=== PATIENT | male | born 1985 | race Caucasian/White ===

== ENCOUNTER 2017-08-14 02:03 | Emergency (ER) | payer MEDICAID, OTHER ==
[2017-08-14] MEDS ORDERED: HYDROmorphone 1 MG/ML Syringe ONE (02:21)
[2017-08-14] MEDS ORDERED: HYDROmorphone 1 MG/ML Syringe IVPUSH ONE (02:21)
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
[2017-08-14] MEDS ORDERED: Sodium Chloride 0.9% 1,000 ML IV SCH ×2 (02:30→03:45)
[2017-08-14] MEDS ORDERED: Ondansetron 4 MG/2 ML SDV IVPUSH ONE (02:57)
[2017-08-14] MEDS ORDERED: Ondansetron 4 MG/2 ML SDV ONE (03:00)
[2017-08-14] MEDS ORDERED: Insulin Regular, Human 100 Units/ML 10 ML Vial SUBCUT ONE (03:02)
[2017-08-14] MEDS ORDERED: cefTRIAXone 1 GM in Sodium Chloride 0.9% 50 ML IV ONE (04:07)
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
--- NOTE | 2017-08-14 09:18 | CR ---
Ankle Min 3V Lt HISTORY: pain in ankle FINDINGS: There is mild widening of the ankle mortise and slight lateral subluxation suggesting ligam entous injury. There are small calcific densities adjacent medial malleolus. This could represent sma ll avulsion fracture versus radiopaque foreign body such as glass overlying the medial ankle. Recomme nd clinical correlation for point tenderness. Soft tissue swelling is present, greater medially than laterally IMPRESSION: Soft tissue swelling, greater medially than laterally. Mild widening of the ankle mortise and slight lateral subluxation could suggest ligamentous injury. Calcific densities are seen adjacen t to the medial malleolus which could represent accessory ossification centers, small avulsion fractu re fragment, or radiopaque foreign body such as glass fragments. Recommend clinical correlation.
== END 2017-08-14 05:03 ==
LOC: JP.ED 02:03
DX: S02.413A LeFort III fracture, initial encounter for closed fracture (principal); S02.2XXA Fracture of nasal bones, initial encounter for closed fracture; S93.402A Sprain of unspecified ligament of left ankle, initial encounter; V40.5XXA Car driver injured in collision with pedestrian or animal in traffic accident, initial encounter; Y92.410 Unspecified street and highway as the place of occurrence of the external cause
CPT/HCPCS: 36415; 70450; 70486; 71010; 72125; 73610; 80053; 81001; 82962; 83690; 85025; 86803; 87340; 87449; 96361; 96365; 96375; 99285; A9270; G0480; J0696; J1170; J2405; J7040; J7050; 99283

== ENCOUNTER 2017-12-13 18:32 | Emergency (ER) | payer MEDICAID ==
[2017-12-13] MEDS ORDERED: Pantoprazole 40 MG Vial IVPUSH ONE (19:37)
--- NOTE | 2017-12-13 19:44 | EDM.PDOC ---
ED HPI GENERAL MEDICAL PROBLEM - General Chief Complaint: Abdominal Pain Stated Complaint: ABD PAIN Time Seen by Provider: 12/13/17 19:12 Source of Information: Reports: Patient, Family (Mom) History Limitations: Reports: No Limitations - History of Present Illness INITIAL COMMENTS - FREE TEXT/NARRATIVE: abdominal pain; this is a 32 year old male presents to ER with Mom with concerns of abdominal pain. He reports yesterday woke up ill, felt like he was going to throw up but did not. intermittent liquid diarrhea. He slept all day yesterday, did not eat any food until this evening ate half a hamburger at 5:30 pm. He continue to have pain in the upper abdomen to the right lower quadrant. denies fever or chills no other family members ill Surgeries; no history of abdominal surgeries chronic health conditions; diabetes type 2; metformin Family History of diabetes, pancreatitis Onset: Gradual Onset Date: 12/12/17 Duration: Day(s): Location: Reports: Abdomen Quality: Reports: Ache, Burning Severity: Moderate Improves with: Reports: None Worsens with: Reports: None Associated Symptoms: Reports: Loss of Appetite, Nausea/Vomiting, Other (fatigue) - Related Data Allergies Allergy/AdvReac Type Severity Reaction Status Date / Time No Known Allergies Allergy Verified 12/13/17 20:28 Home Meds: Home Meds metFORMIN [Glucophage] 1,000 mg PO BIDMEALS 08/14/17 [History] Past Medical History HEENT History: Reports: Other (See Below) Other HEENT History: facial fractures Gastrointestinal History: Reports: Cholelithiasis Neurological History: Reports: Head Trauma Psychiatric History: Reports: ADD Endocrine/Metabolic History: Reports: Diabetes, Type II - Past Surgical History HEENT Surgical History: Reports: Other (See Below) Other HEENT Surgeries/Procedures: plates and pins in face GI Surgical History: Reports: Hernia, Inguinal Social & Family History - Tobacco Use Smoking Status *Q: Never Smoker - Caffeine Use Caffeine Use: Reports: Coffee, Energy Drinks - Alcohol Use Days Per Week of Alcohol Use: 2 Number of Drinks Per Day: 5 Total Drinks Per Week: 10 - Recreational Drug Use Recreational Drug Use: No - Living Situation & Occupation Living situation: Reports: Single, with Family ED ROS GENERAL - Review of Systems Review Of Systems: See Below Constitutional: Reports: Malaise, Fatigue, Decreased Appetite HEENT: Reports: No Symptoms Respiratory: Reports: No Symptoms Cardiovascular: Reports: No Symptoms Endocrine: Reports: Other (reports diabetes type 2, blood glucose controlled) GI/Abdominal: Reports: Abdominal Pain, Diarrhea, Decreased Appetite, Nausea : Reports: No Symptoms Musculoskeletal: Reports: No Symptoms Skin: Reports: No Symptoms Neurological: Reports: No Symptoms Psychiatric: Reports: No Symptoms Hematologic/Lymphatic: Reports: No Symptoms Immunologic: Reports: No Symptoms ED EXAM, GI/ABD - Physical Exam Exam: See Below Exam Limited By: No Limitations General Appearance: Alert, WD/WN, No Apparent Distress Eyes: Bilateral: Normal Appearance, EOMI Ears: Normal External Exam, Normal Canal, Hearing Grossly Normal, Normal TMs Nose: Normal Inspection, Normal Mucosa, No Blood Throat/Mouth: Normal Inspection, Normal Lips, Normal Teeth, Normal Gums, Normal Oropharynx, Normal Voice, No Airway Compromise Head: Atraumatic, Normocephalic Neck: Normal Inspection, Supple, Non-Tender, Full Range of Motion Respiratory/Chest: No Respiratory Distress, Lungs Clear, Normal Breath Sounds, No Accessory Muscle Use, Chest Non-Tender Cardiovascular: Normal Peripheral Pulses, Regular Rate, Rhythm, No Edema, No Gallop, No JVD, No Murmur, No Rub GI/Abdominal Exam: Normal Bowel Sounds, Tender (epigastric to rigth lower quadrant) (Male) Exam: Deferred Rectal (Males) Exam: Deferred Back Exam: Normal Inspection, Full Range of Motion, NT Extremities: Normal Inspection, Normal Range of Motion, Non-Tender, Normal Capillary Refill, No Pedal Edema Neurological: Alert, Oriented, CN II-XII Intact, Normal Cognition, Normal Gait, Normal Reflexes, No Motor/Sensory Deficits Psychiatric: Normal Affect, Normal Mood Skin Exam: Warm, Dry, Intact, Normal Color, No Rash Lymphatic: No Adenopathy Course - Vital Signs Last Recorded V/S: Last Vital Signs Temp 36.7 C 12/13/17 20:45 Pulse 87 12/13/17 21:59 Resp 16 12/13/17 21:59 BP 117/84 12/13/17 21:59 Pulse Ox 96 12/13/17 21:59 - Orders/Labs/Meds Orders: Active Orders 24 hr Category Date Time Status CULTURE STREP A CONFIRMATION [RM] Stat Lab 12/13/17 20:06 Results STREP SCRN A RAPID W CULT CONF [RM] Stat Lab 12/13/17 20:06 Results Sodium Chloride 0.9% [Normal Saline] 1,000 ml Med 12/13/17 19:45 Active IV ASDIRECTED Medication Orders Sodium Chloride (Normal Saline) 1,000 mls @ 999 mls/hr IV ASDIRECTED SERVANDO Last Admin: 12/13/17 19:52 Dose: 999 mls/hr Labs: Laboratory Tests 12/13/17 12/13/17 12/13/17 Range/Units 19:35 19:50 19:50 WBC 8.2 (4.5-11.0) K/uL RBC 6.68 H (4.30-5.90) M/uL Hgb 18.0 H (12.0-15.0) g/dL Hct 50.1 (40.0-54.0) % MCV 75 L (80-98) fL MCH 27 (27-31) pg MCHC 36 (32-36) % Plt Count 263 (150-400) K/uL Neut % (Auto) 63 (36-66) % Lymph % (Auto) 25 (24-44) % [place] % (Auto) 9 H (2-6) % Eos % (Auto) 3 (2-4) % Baso % (Auto) 0 (0-1) % Sodium 136 L (140-148) mmol/L Potassium 4.1 (3.6-5.2) mmol/L Chloride 98 L (100-108) mmol/L Carbon Dioxide 24 (21-32) mmol/L Anion Gap 18.1 H (5.0-14.0) mmol/L BUN 13 (7-18) mg/dL Creatinine 1.0 (0.8-1.3) mg/dL Est Cr Clr Drug Dosing 116.40 mL/min Estimated GFR (MDRD) > 60 (>60) Glucose 387 H (74-106) mg/dL Calcium 9.3 (8.5-10.1) mg/dL Total Bilirubin 0.7 (0.2-1.0) mg/dL AST 20 D (15-37) U/L ALT 39 D (12-78) U/L Alkaline Phosphatase 98 (46-116) U/L Total Protein 8.9 H (6.4-8.2) g/dL Albumin 4.1 (3.4-5.0) g/dL Globulin 4.8 H (2.3-3.5) g/dL Albumin/Globulin Ratio 0.9 L (1.2-2.2) Amylase (25-115) U/L Lipase (73-393) U/L Urine Color Yellow Urine Appearance Clear Urine pH 5.0 (4.5-8.0) Ur Specific [place] 1.015 (1.008-1.030) Urine Protein Negative (NEGATIVE) mg/dL Urine Glucose (UA) 1000 H (NEGATIVE) mg/dL Urine Ketones Negative (NEGATIVE) mg/dL Urine Occult Blood Negative (NEGATIVE) Urine Nitrite Negative (NEGAITVE) Urine Bilirubin Negative (NEGATIVE) Urine Urobilinogen Normal (NORMAL) mg/dL Ur Leukocyte Esterase Negative (NEGATIVE) Urine RBC 0-5 (0-5) Urine WBC 0-5 (0-5) Ur Epithelial Cells Rare Amorphous Sediment Rare Urine Bacteria Few Urine Mucus Few 12/13/17 Range/Units 19:50 WBC (4.5-11.0) K/uL RBC (4.30-5.90) M/uL Hgb (12.0-15.0) g/dL Hct (40.0-54.0) % MCV (80-98) fL MCH (27-31) pg MCHC (32-36) % Plt Count (150-400) K/uL Neut % (Auto) (36-66) % Lymph % (Auto) (24-44) % [place] % (Auto) (2-6) % Eos % (Auto) (2-4) % Baso % (Auto) (0-1) % Sodium (140-148) mmol/L Potassium (3.6-5.2) mmol/L Chloride (100-108) mmol/L Carbon Dioxide (21-32) mmol/L Anion Gap (5.0-14.0) mmol/L BUN (7-18) mg/dL Creatinine (0.8-1.3) mg/dL Est Cr Clr Drug Dosing mL/min Estimated GFR (MDRD) (>60) Glucose (74-106) mg/dL Calcium (8.5-10.1) mg/dL Total Bilirubin (0.2-1.0) mg/dL AST (15-37) U/L ALT (12-78) U/L Alkaline Phosphatase (46-116) U/L Total Protein (6.4-8.2) g/dL Albumin (3.4-5.0) g/dL Globulin (2.3-3.5) g/dL Albumin/Globulin Ratio (1.2-2.2) Amylase 29 (25-115) U/L Lipase 115 (73-393) U/L Urine Color Urine Appearance Urine pH (4.5-8.0) Ur Specific [place] (1.008-1.030) Urine Protein (NEGATIVE) mg/dL Urine Glucose (UA) (NEGATIVE) mg/dL Urine Ketones (NEGATIVE) mg/dL Urine Occult Blood (NEGATIVE) Urine Nitrite (NEGAITVE) Urine Bilirubin (NEGATIVE) Urine Urobilinogen (NORMAL) mg/dL Ur Leukocyte Esterase (NEGATIVE) Urine RBC (0-5) Urine WBC (0-5) Ur Epithelial Cells Amorphous Sediment Urine Bacteria Urine Mucus Meds: Medications Generic Name Dose Route Start Last Admin Trade Name Freq PRN Reason Stop Dose Admin Sodium Chloride 1,000 mls @ 999 mls/hr 12/13/17 19:45 12/13/17 19:52 Normal Saline IV 999 mls/hr ASDIRECTED SERVANDO Administration Discontinued Medications Generic Name Dose Route Start Last Admin Trade Name Freq PRN Reason Stop Dose Admin Lactated Ringer's 1,000 mls @ 999 mls/hr 12/13/17 20:51 12/13/17 20:55 Ringers, Lactated IV 12/13/17 21:51 999 mls/hr BOLUS ONE Administration Insulin Human Regular 10 unit 12/13/17 20:59 12/13/17 21:06 Novolin R SUBCUT 12/13/17 21:00 10 units ONETIME ONE Administration Protocol Pantoprazole Sodium 40 mg 12/13/17 19:37 12/13/17 19:55 Protonix Iv IVPUSH 12/13/17 19:38 40 mg ONETIME ONE Administration - Re-Assessments/Exams Free Text/Narrative Re-Assessment/Exam: 12/13/17 19:47 will do labs to rule out any acute abdomen, complication of diabetes vs viral illness -CBC, CMP, AMYLASE, LIPASE, UA -INFLUENZA A & B, RST Meds -Normal Saline 999ml/hr (1 liter) -Protonix 20 mg IV James and his Mom agree with plan of care. 12/13/17 21:02 -labs result show diabetes out of control, blood glucose 387. -no acute infectious process -will give another liter of LR 1liter, insulin regular subcut 10 units now -advise to follow up with Primary Care on Saturday -restart Metformin, he has this at home. -restart Diabetic diet, avoid sugars, energy drinks, ect, reports "knows this diet" James and his Mom, agree with plan of care Departure - Departure Time of Disposition: 22:00 Disposition: Home, Self-Care 01 Condition: Good Clinical Impression: Diabetes mellitus out of control Qualifiers: Diabetes mellitus type: type 2 Diabetes mellitus complication status: with hyperglycemia Diabetes mellitus care home insulin use: without town marshal use Qualified Code(s): E11.65 - Type 2 diabetes mellitus with hyperglycemia - Discharge Information Instructions: Type 2 Diabetes Mellitus, Diagnosis, Adult, Hyperglycemia, Easy- to-Read, Diabetes Mellitus and Food Referrals: PCP,None [Primary Care Provider] - Forms: ED Department Discharge Care Plan Goals: Diabetes out of control -restart Diabetes diet -restart Metformin as prescribed by Provider -follow up with Primary Care on Saturday Return to Clinic or ER if symptoms worsen or not improving. - Problem List & Annotations (1) Diabetes mellitus out of control SNOMED Code(s): 091707697 Code(s): E11.65 - TYPE 2 DIABETES MELLITUS WITH HYPERGLYCEMIA Status: Acute Current Visit: Yes Qualifiers: Diabetes mellitus type: type 2 Diabetes mellitus complication status: with hyperglycemia Diabetes mellitus town marshal insulin use: without care home use Qualified Code(s): E11.65 - Type 2 diabetes mellitus with hyperglycemia - Problem List Review Problem List Initiated/Reviewed/Updated: Yes - My Orders Last 24 Hours: My Active Orders 12/13/17 19:45 Sodium Chloride 0.9% [Normal Saline] 1,000 ml IV ASDIRECTED 12/13/17 20:06 CULTURE STREP A CONFIRMATION [RM] Stat STREP SCRN A RAPID W CULT CONF [RM] Stat - Assessment/Plan Last 24 Hours: My Active Orders 12/13/17 19:45 Sodium Chloride 0.9% [Normal Saline] 1,000 ml IV ASDIRECTED 12/13/17 20:06 CULTURE STREP A CONFIRMATION [RM] Stat STREP SCRN A RAPID W CULT CONF [RM] Stat Plan: Diabetes out of control -restart Diabetes diet -restart Metformin as prescribed by Provider -follow up with Primary Care on Saturday Return to Clinic or ER if symptoms worsen or not improving.
[2017-12-13] MEDS ORDERED: Sodium Chloride 0.9% 1,000 ML IV SCH (19:45)
[2017-12-13] MEDS ORDERED: Lactated Ringers 1,000 ML IV ONE (20:51)
[2017-12-13] MEDS ORDERED: Insulin Regular, Human 100 Units/ML 10 ML Vial SUBCUT ONE (20:59)
== END 2017-12-13 22:01 | disposition home or self-care (01) ==
LOC: JP.ED 18:32
DX: E11.65 Type 2 diabetes mellitus with hyperglycemia (principal); Z79.84 Long term (current) use of oral hypoglycemic drugs
CPT/HCPCS: 36415; 80053; 81001; 82150; 83690; 85025; 87081; 87430; 87804; 96361; 96374; 99284; A9270; C9113; J7040; J7120